=== PATIENT | male | born 1940 | race Caucasian/White ===

== ENCOUNTER 2017-03-05 22:57 | Emergency (ER) | payer MEDICARE, MEDICAID ==
[2017-03-05] MEDS ORDERED: Cephalexin 250 MG CAP ONE (23:16)
== END 2017-03-06 00:37 | disposition home or self-care (01) ==
LOC: BURERS 22:57
DX: L02.413 Cutaneous abscess of right upper limb (principal); G30.9 Alzheimer's disease, unspecified; F02.80 Dementia in other diseases classified elsewhere, unspecified severity, without behavioral disturbance, psychotic disturbance, mood disturbance, and anxiety; I10 Essential (primary) hypertension; E11.9 Type 2 diabetes mellitus without complications; E78.5 Hyperlipidemia, unspecified; D64.9 Anemia, unspecified; I25.10 Atherosclerotic heart disease of native coronary artery without angina pectoris; F32.9 Major depressive disorder, single episode, unspecified; Z79.82 Long term (current) use of aspirin; Z79.899 Other long term (current) drug therapy; Z79.891 Long term (current) use of opiate analgesic
CPT/HCPCS: 10060

== ENCOUNTER 2017-08-30 04:49 | Emergency (ER) | payer MEDICARE, OTHER ==
[2017-08-30 05:44] LABS: ALT (SGPT) 18 U/L (8-55); AST (SGOT) 18 U/L (5-34); Alkaline Phosphatase 96 U/L (40-150); Anion Gap 14 mmol/L (10-20); BUN (Urea Nitrogen) 29 mg/dL (8.4-25.7); Bilirubin, Total 0.9 mg/dL (0.2-1.2); Calc. Creatinine Clearance 0 mL/min (70-130); Calcium 9.6 mg/dL (7.8-10.44); Carbon Dioxide 20 mmol/L (23-31); Chloride 115 mmol/L (98-107); Estimated GFR-MDRD 42; Globulin 2.8 g/dL (2.4-3.5); Glucose 140 mg/dL (83-110); Potassium 4.3 mmol/L (3.5-5.1); Protein, Total 6.8 g/dL (5.8-8.1); Sodium 145 mmol/L (136-145)
[2017-08-30 05:46] LABS: CKMB 2.6 ng/mL (0-6.6); Hemoglobin 12.8 g/dL (14.0-18.0); Mean Corpuscular HGB CONC 35.2 g/dL (32.0-36.0); Mean Corpuscular Hemoglobin 32.3 pg (27.0-31.0); Platelet Count 119 thou/uL (130-400); RBC Distribution Width 11.8 % (11.5-14.5); Red Blood Cell (RBC) Count 3.96 mill/uL (4.70-6.10); Troponin I Less than 0.010 ng/mL (< 0.028); White Blood Cell (WBC) Count 5.6 thou/uL (4.8-10.8)
[2017-08-30 06:12] LABS: #Lymphocytes 0.6 thou/uL (1.20-3.40); #Monocytes 0.3 thou/uL (0.11-0.59); #Neutrophils 4.7 thou/uL (1.40-6.50); %Basophils 0.6 % (0.0-1.0); %Eosinophils 0.1 % (0.0-10.0); %Lymphocytes 10.3 % (21.0-51.0); %Neutrophils 83.1 % (42.0-75.0); Band 4 % (5-11); Lymphocytes 8 % (21-51); MDiff Complete? YES; Monocytes 5 % (0-10); Neutrophil 83 % (42-75); PLT Morphology Comment Appears Decreased; RBC Morphology Normal
--- NOTE | 2017-08-30 07:08 | RAD ---
PORTABLE CHEST: Date: 08/30/17 An AP portable film at 0512 hours is compared with a 05/08/15 study. FINDINGS: The heart is normal in size given the projection and body habitus. There are no signs of congestion, edema, or pleural effusion. There is slight prominence of markings in the right base medially. I andrae ot exclude an early infiltrate developing here. This area may bear further watching. IMPRESSION: Slight prominence of right basilar markings. POS: HOME
== END 2017-08-30 07:09 ==
LOC: BURERS 04:49
DX: K52.9 Noninfective gastroenteritis and colitis, unspecified (principal); G30.9 Alzheimer's disease, unspecified; F02.80 Dementia in other diseases classified elsewhere, unspecified severity, without behavioral disturbance, psychotic disturbance, mood disturbance, and anxiety; I10 Essential (primary) hypertension; I25.10 Atherosclerotic heart disease of native coronary artery without angina pectoris; E11.9 Type 2 diabetes mellitus without complications; E78.5 Hyperlipidemia, unspecified; F32.9 Major depressive disorder, single episode, unspecified; D64.9 Anemia, unspecified; Z79.899 Other long term (current) drug therapy; Z79.82 Long term (current) use of aspirin; Z79.02 Long term (current) use of antithrombotics/antiplatelets
CPT/HCPCS: 36415; 71045; 80053; 82553; 84484; 85025; 93005; 96360

== ENCOUNTER 2018-12-15 08:07 | Emergency (ER) | payer MEDICARE, MEDICAID ==
[2018-12-15 08:33] LABS: #Basophils 0.1 thou/uL (0.0-0.2); #Lymphocytes 0.4 thou/uL (1.20-3.40); #Monocytes 0.3 thou/uL (0.11-0.59); #Neutrophils 4.9 thou/uL (1.40-6.50); %Basophils 0.9 % (0.0-1.0); %Eosinophils 0.2 % (0.0-10.0); %Lymphocytes 6.7 % (21.0-51.0); %Monocytes 4.5 % (0.0-10.0); %Neutrophils 87.7 % (42.0-75.0); Hemoglobin 10.6 g/dL (14.0-18.0); Mean Corpuscular HGB CONC 32.2 g/dL (32.0-36.0); Mean Corpuscular Volume 93.2 fL (78.0-98.0); Mean Platelet Volume 8.7 fL (7.4-10.4); Platelet Count 134 thou/uL (130-400); RBC Distribution Width 12.4 % (11.5-14.5); Red Blood Cell (RBC) Count 3.54 mill/uL (4.70-6.10); White Blood Cell (WBC) Count 5.6 thou/uL (4.8-10.8)
[2018-12-15 08:48] LABS: ALT (SGPT) 18 U/L (8-55); AST (SGOT) 18 U/L (5-34); Albumin 3.5 g/dL (3.4-4.8); Alkaline Phosphatase 84 U/L (40-150); Anion Gap 13 mmol/L (10-20); BUN (Urea Nitrogen) 22 mg/dL (8.4-25.7); Bilirubin, Total 0.7 mg/dL (0.2-1.2); Calc. Creatinine Clearance 0 mL/min (70-130); Calcium 8.9 mg/dL (7.8-10.44); Carbon Dioxide 21 mmol/L (23-31); Chloride 111 mmol/L (98-107); Estimated GFR-MDRD 48; Globulin 2.6 g/dL (2.4-3.5); Glucose 168 mg/dL (83-110); Potassium 4.1 mmol/L (3.5-5.1); Protein, Total 6.1 g/dL (5.8-8.1); Sodium 141 mmol/L (136-145)
== END 2018-12-15 10:00 | disposition home or self-care (01) ==
LOC: BURERS 08:07
DX: R11.2 Nausea with vomiting, unspecified (principal); E11.9 Type 2 diabetes mellitus without complications; E78.5 Hyperlipidemia, unspecified; I11.0 Hypertensive heart disease with heart failure; I50.9 Heart failure, unspecified; I25.10 Atherosclerotic heart disease of native coronary artery without angina pectoris; F32.9 Major depressive disorder, single episode, unspecified; Z79.899 Other long term (current) drug therapy
CPT/HCPCS: 36415; 80053; 85025; 96360

== ENCOUNTER 2019-01-23 17:49 | Emergency (ER) | payer MEDICARE, MEDICAID ==
[2019-01-23] MEDS ORDERED: Lidocaine 2% PF 5 ML VIAL ONE (19:24)
[2019-01-23] MEDS ORDERED: Bacitracin Zinc 1 Packet ONE (19:49)
--- NOTE | 2019-01-23 20:09 | RAD ---
RIGHT FOOT FOUR VIEWS: 01/23/19 Soft tissue swelling and soft tissue air is seen in the foot, particularly around the great toe. Bony deformity at the base of the proximal phalanx of the great toe, lateral side, does not appear acute and is most likely due to old injury. There is no joint dislocation. The bony structures appeared int act. Arterial calcifications are evident in the foot. The forefoot near the tarsometatarsal junction is seen incompletely. A large calcaneal spur is present. Pes planus is noted. There are two rounded b eunice densities on the medial side of the first MTP joint. I suspect that this is longstanding. One of the sesamoids may be malplaced, but I doubt that this is acute. IMPRESSION: Soft tissue injury and old chronic changes around the first MTP joint. No acute fracture is appreciat ed at this time. Follow-up images may be necessary as it was difficult to obtain good images on this day. POS: HOME
== END 2019-01-23 20:00 | disposition home or self-care (01) ==
LOC: BURERS 17:49
DX: S91.311A Laceration without foreign body, right foot, initial encounter (principal); G30.9 Alzheimer's disease, unspecified; I11.0 Hypertensive heart disease with heart failure; I50.9 Heart failure, unspecified; I25.10 Atherosclerotic heart disease of native coronary artery without angina pectoris; E11.9 Type 2 diabetes mellitus without complications; E78.5 Hyperlipidemia, unspecified; D64.9 Anemia, unspecified; K21.9 Gastro-esophageal reflux disease without esophagitis; F32.9 Major depressive disorder, single episode, unspecified; Z79.82 Long term (current) use of aspirin; Z79.899 Other long term (current) drug therapy; X58.XXXA Exposure to other specified factors, initial encounter
CPT/HCPCS: J2001